=== PATIENT | female | born 1930 | race Caucasian/White ===

== ENCOUNTER → 2018-01-28 | Outpatient (CLI) | payer OTHER ==
[~2018-01-28] MED LIST: ASPI81CH PO; DILT60 PO; ERGO400 PO; FLAX PO; HYDCHL12.5 PO; LISI20 PO; LUMIGAN2.5 ML LEFTEYE; PANT40 PO; PROBIOTIC1 EAC2 PO; PSYL5.85P PO; TIMDOROPSO LEFTEYE; Vitamin D400 UNI2 PO; [UNRECOGNIZED DRUG - OTHER] PO
[2018-01-29 10:56] LABS: Adenovirus F 40/41 Not Detected (NOT DETECT); Astrovirus Not Detected (NOT DETECT); Campylobacter Sp Not Detected (NOT DETECT); Cryptosporidium Not Detected (NOT DETECT); Cyclospora Cayetanensis Not Detected (NOT DETECT); E. Coli O157 Not Detected (NOT DETECT); Entamoeba Histolytica Not Detected (NOT DETECT); Enteroaggregative E. coli-EAEC Not Detected (NOT DETECT); Enteropathogenic E. coli-EPEC Not Detected (NOT DETECT); Enterotoxigenic E. coli-ETEC Not Detected (NOT DETECT); Giardia Lamblia Not Detected (NOT DETECT); Norovirus GI/GII Not Detected (NOT DETECT); Plesiomonas Shigelloides Not Detected (NOT DETECT); Rotavirus A Not Detected (NOT DETECT); Salmonella Sp Not Detected (NOT DETECT); Sapovirus Not Detected (NOT DETECT); Shiga Toxin-prod E. coli-STEC Not Detected (NOT DETECT); Shigella/Enteroin E. coli-EIEC Not Detected (NOT DETECT); Vibrio Cholerae Not Detected (NOT DETECT); Vibrio Sp Not Detected (NOT DETECT); Yersinia Enterocolitica Not Detected (NOT DETECT)
== END | disposition home or self-care (01) ==
LOC: LAB SHORT 19:00 → LAB EV 19:00
PROVIDERS: Physician Assistant
DX: R19.7 Diarrhea, unspecified (principal)
CPT/HCPCS: 87507

== ENCOUNTER → 2018-01-29 | Outpatient (CLI) | payer OTHER ==
[2018-01-29 10:46] LABS: BASOPHILS ABSOLUTE AUTO 0.05 K/mm3 (0.00-0.23); BASOPHILS PERCENT AUTO 1 % (0-2); EOSINOPHILS ABSOLUTE AUTO 0.21 K/mm3 (0.00-0.68); EOSINOPHILS PERCENT AUTO 2 % (0-6); Hematocrit 48.4 % (33.0-51.0); IMMATURE GRAN ABSOLUTE AUTO 0.08 K/mm3 (0.00-0.10); IMMATURE GRAN PERCENT AUTO 1 % (0-1); LYMPHOCYTES PERCENT AUTO 30 % (21-46); MONOCYTES ABSOLUTE AUTO 0.63 K/mm3 (0.16-1.47); MONOCYTES PERCENT AUTO 6 % (4-13); Mean Corpuscular HGB 29.5 pg (26.0-34.0); Mean Corpuscular HGB Conc 33.1 g/dL (31.5-36.5); Mean Corpuscular Volume 89 fL (80-100); Mean Platelet Volume 9.8 fL (9.1-12.4); NEUTROPHILS ABSOLUTE AUTO 6.18 K/mm3 (1.96-9.15); NEUTROPHILS PERCENT AUTO 60 % (41-73); Platelet Count 209 K/mm3 (150-400); RDW Standard Deviation 42.4 fL (35.1-46.3); Red Blood Cell Count 5.43 M/mm3 (3.80-5.20); White Blood Cell Count 10.25 K/mm3 (4.00-11.30)
[2018-01-29 11:07] LABS: Alanine Aminotransfer (ALT/SGP 40 U/L (12-78); Albumin, Blood 3.7 g/dL (3.4-5.0); Albumin/Globulin Ratio 0.9 (0.8-1.8); Alk Phos 113 U/L (40-126); Anion Gap 11 mmol/L (6-16); Aspartate Aminotrans (AST/SGOT 20 U/L (12-37); Bilirubin, Total 0.4 mg/dL (0.1-1.0); Blood Urea Nitrogen 13 mg/dL (8-24); Bun/Creatinine Ratio 14.6 (12.0-20.0); CO2, Blood 25 mmol/L (21-32); Calcium, Blood 9.2 mg/dL (8.5-10.1); Chloride, Blood 99 mmol/L (98-108); Creatinine, Blood 0.89 mg/dL (0.40-1.00); Globulin, Blood 4.3 g/dL (2.2-4.0); Glomerular Filtration Rate >60 (60-); Glucose, Blood 341 mg/dL (70-99); Magnesium, Blood 1.9 mg/dL (1.6-2.4); Potassium, Blood 3.8 mmol/L (3.5-5.5); Sodium, Blood 135 mmol/L (136-145); Thyroid Stimulating Hormone 1.244 uIU/mL (0.360-4.800)
== END | disposition home or self-care (01) ==
LOC: LAB SHORT 10:43 → LAB EV 10:43
PROVIDERS: Physician Assistant
DX: R19.7 Diarrhea, unspecified (principal); R53.83 Other fatigue
CPT/HCPCS: 80053; 83735; 84443; 85025

== ENCOUNTER 2019-11-11 15:38 | Inpatient (IN) | payer OTHER ==
[~2019-11-11] VITALS: Ht 162.6 cm; Wt 89.5 kg
[~2019-11-11 15:38] MED LIST changes: -Vitamin D400 UNI2 PO
[2019-11-11 16:09] LABS: BASOPHILS ABSOLUTE AUTO 0.05 K/mm3 (0.00-0.23); BASOPHILS PERCENT AUTO 0 % (0-2); EOSINOPHILS ABSOLUTE AUTO 0.17 K/mm3 (0.00-0.68); EOSINOPHILS PERCENT AUTO 1 % (0-6); Hematocrit 50.2 % (33.0-51.0); Hemoglobin 15.9 g/dL (11.5-16.0); IMMATURE GRAN ABSOLUTE AUTO 0.13 K/mm3 (0.00-0.10); IMMATURE GRAN PERCENT AUTO 1 % (0-1); LYMPHOCYTES ABSOLUTE AUTO 2.92 K/mm3 (0.84-5.20); LYMPHOCYTES PERCENT AUTO 18 % (21-46); MONOCYTES PERCENT AUTO 5 % (4-13); Mean Corpuscular HGB Conc 31.7 g/dL (31.5-36.5); Mean Corpuscular Volume 92 fL (80-100); Mean Platelet Volume 10.4 fL (9.1-12.4); NEUTROPHILS ABSOLUTE AUTO 11.88 K/mm3 (1.96-9.15); NEUTROPHILS PERCENT AUTO 75 % (41-73); Platelet Count 354 K/mm3 (150-400); RDW Standard Deviation 44.1 fL (35.1-46.3); Red Blood Cell Count 5.48 M/mm3 (3.80-5.20); White Blood Cell Count 15.95 K/mm3 (4.00-11.30)
[2019-11-11 16:33] LABS: Alanine Aminotransfer (ALT/SGP 110 U/L (12-78); Albumin, Blood 3.4 g/dL (3.4-5.0); Albumin/Globulin Ratio 0.8 (0.8-1.8); Alk Phos 216 U/L (50-136); Anion Gap 12 mmol/L (6-16); Aspartate Aminotrans (AST/SGOT 105 U/L (12-37); Bilirubin, Total 0.7 mg/dL (0.1-1.0); Blood Urea Nitrogen 14 mg/dL (8-24); Bun/Creatinine Ratio 15.8 (12.0-20.0); CO2, Blood 23 mmol/L (21-32); Calcium, Blood 9.3 mg/dL (8.5-10.1); Chloride, Blood 103 mmol/L (98-108); Creatinine, Blood 0.89 mg/dL (0.40-1.00); Globulin, Blood 4.5 g/dL (2.2-4.0); Glomerular Filtration Rate >60 (60-); Glucose, Blood 329 mg/dL (70-99); Potassium, Blood 3.3 mmol/L (3.5-5.5); Sodium, Blood 138 mmol/L (136-145); Total Protein, Blood 7.9 g/dL (6.4-8.2); Troponin I 0.057 ng/mL (0.000-0.040)
[2019-11-11 18:11] LABS: D-Dimer, Quantitative 0.64 mg/L FEU (0.00-0.52); Prothrombin Time Results 10.7 Sec (9.7-11.5)
[2019-11-11] MEDS ORDERED: TIMO.5OPSO BOTHEYES (22:12)
[2019-11-11] MEDS ORDERED: LISI20 PO (22:13)
[2019-11-11] MEDS ORDERED: LATA.005SO BOTHEYES (22:18)
[2019-11-11] MEDS ORDERED: METF500 PO ×2 (22:19)
[2019-11-11] MEDS ORDERED: GLIP10 PO (22:20)
[2019-11-11] MEDS ORDERED: AMLO5 PO (22:21)
[2019-11-11] MEDS ORDERED: ATOR20 PO (22:21)
[2019-11-11] MEDS ORDERED: FURO40 PO (22:23)
[2019-11-12 02:14] LABS: BASOPHILS ABSOLUTE AUTO 0.07 K/mm3 (0.00-0.23); BASOPHILS PERCENT AUTO 1 % (0-2); EOSINOPHILS ABSOLUTE AUTO 0.19 K/mm3 (0.00-0.68); EOSINOPHILS PERCENT AUTO 2 % (0-6); Hematocrit 45.7 % (33.0-51.0); Hemoglobin 14.4 g/dL (11.5-16.0); IMMATURE GRAN ABSOLUTE AUTO 0.07 K/mm3 (0.00-0.10); IMMATURE GRAN PERCENT AUTO 1 % (0-1); LYMPHOCYTES ABSOLUTE AUTO 3.13 K/mm3 (0.84-5.20); LYMPHOCYTES PERCENT AUTO 25 % (21-46); MONOCYTES ABSOLUTE AUTO 1.04 K/mm3 (0.16-1.47); MONOCYTES PERCENT AUTO 8 % (4-13); Mean Corpuscular HGB 28.6 pg (26.0-34.0); Mean Corpuscular HGB Conc 31.5 g/dL (31.5-36.5); Mean Corpuscular Volume 91 fL (80-100); Mean Platelet Volume 9.9 fL (9.1-12.4); NEUTROPHILS ABSOLUTE AUTO 8.08 K/mm3 (1.96-9.15); NEUTROPHILS PERCENT AUTO 64 % (41-73); Platelet Count 294 K/mm3 (150-400); RDW Coefficient Variation 13.2 % (11.7-14.2); RDW Standard Deviation 44.2 fL (35.1-46.3); Red Blood Cell Count 5.04 M/mm3 (3.80-5.20); White Blood Cell Count 12.58 K/mm3 (4.00-11.30)
[2019-11-12 02:35] LABS: Albumin/Globulin Ratio 0.7 (0.8-1.8); Bilirubin, Total 0.2 mg/dL (0.1-1.0); Bun/Creatinine Ratio 21.6 (12.0-20.0); Calcium, Blood 8.5 mg/dL (8.5-10.1); Creatinine, Blood 1.02 mg/dL (0.40-1.00); Globulin, Blood 4.1 g/dL (2.2-4.0); Potassium, Blood 3.4 mmol/L (3.5-5.5); Total Protein, Blood 7.1 g/dL (6.4-8.2)
[2019-11-12 02:37] LABS: Troponin I 1.44 ng/mL (0.000-0.040)
--- NOTE | 2019-11-12 06:27 | NUR ---
SHIFT LEANA. ASSUMED CARE ON ADMIT FROM ED AT 2029. STEPPED ONTO FLOOR AND ASSISTED TO BED . UNSTEADY GAIT. VERY WEAK. AMIODARONE CONT AT 1 MG/ MIN/ BP HIGH WHEN FIRST IN ROOM .SR AT 70 AVERAGE. BBB/ OCC PVC. SLEPT IN RECLINER ALL NOC. COMFORTABLE WHEN NOT HAVING TO MOVE ABOUT DUE TO SHARP PAIN LT BACK RIB AREA IF TWISTING WRONG OR GETTING IN AND OUT OF BED OR CHAIR. ALSO NOTICED THIS PAIN , NOT SHARP, ON DEEP INSPIRATION.LUNGS CLEAR T/O . REPORTS THIS PAIN HAS BEEN LIKE THIS FOR ABOUT 4 DAYS AT HOME. LIVES ALONE AND NEED FOR SOCIAL SERVICE, REPORTS HAVING FALLEN AT HOME ABOUT 4 MO AGO. ALL FAMILY OUT OF STATE. SNORTS TO CLEAR THROAT A LOT. NOTED FEW PATCHES OF RED SKIN MID STERNAL AREA. NO OTHER SKIN ISSUES . REDUCED ANIODARONE GTT TO 0.5 MG MIN AT 2300 POST 6 HR AT 1 MG / MIN DOSE.
--- NOTE | 2019-11-12 08:54 | NUR ---
AM NOTE... ASSUMED CARE OF PT APROX 0700, PT IS A&Ox4. PT WAS ADMITTED FOR AFIB RVR IS S/P CARDIOVERSION AND IS CURRENTLY ON AN AMNIO GTT RUNNING PER ORDERS. PT'S VS STABLE AT THIS TIME. L/S CLEAR T/O ON RA. BT PRESENT AND NORMOACTIVE ABD SOFT AND NONTENDER TO PALP. PT DENIES ANY CHEST PAIN/PRESSURE N/V OR SOB AT THIS TIME. PT IS UP IN THE RECLINER CHAIR AND IS SBA TO THE [facility]. THIS RN SPOKE WITH FAMILY AND GAVE THEM AN UPDATE, PER THE FAMILY THEY FEEL SHE IS UNSAFE TO D/C HOME ALONE, THEY ARE CURRENTLY WORKING ON GETTING A FAMILY MEMBER TO [place] TO HELP WITH HER HOME CARE. METAL TRIMMER AMEYA UPDATED. CALL LIGHT IN REACH WILL CONTINUE TO MONITOR.
--- NOTE | 2019-11-12 18:36 | NUR ---
SHIFT SUMMARY... NO ACUTE NEGATIVE CHANGES NOTED THIS SHIFT. PT'S VS WERE STABLE EXCEPT BP, PT BECAME HYPERTENSIVE THIS AFTERNOON. PROVIDER IS AWARE AND NEW PRN MEDICATIONS ORDERED. PT HAS BEEN UP IN THE CHAIR MOST OF THE SHIFT. ECHO WAS DONE TODAY, RESULTS PENDING. PT HAS BEEN SBA TO THE BATHROOM W/FWW AND GAIT BELD. PT WORKED WITH PT/OT TODAY WELL. PT DENIES ANY CHEST PAIN/PRESSURE N/V OR SOB. PT HAS BEEN IN NSR T/O SHIFT. THIS RN SPOKE WITH THE PT'S FAMILY MULTIPLE TIMES T/O SHIFT TO UPDATE THEM. FAMILY LIVES IN [place] AND IS WORKING ON MAKING IT UP HERE TO HELP WITH THE PT'S MEDICATIONS AND COOKING/CLEANING. CALL LIGHT IN REACH WILL CONTINUE TO MONITOR UNTIL REPORT IS GIVEN TO ONCOMING RN.
--- NOTE | 2019-11-12 22:47 | NUR ---
2129 PT ARRIVED TO ROOM 342 FROM [facility] IN STABLE CONDITION. REPORTS PAIN IN L SIDE WITH MOVEMENT OR COUGH. DENIES SOB OR COUGH BUT REPORTS SHE FEELS LIKE SHE HAS PHLEM SHE NEEDS TO COUGH UP. IV IN LAC IS LEAKING, WILL DC AND START NEW IV. LUNGS ARE CLEAR BUT DIMINISHED. ON RA AT 96%. YEASTY AREAS UNDER BREASTS AND IN GROIN AREA, SOME REDNESS IN L GROIN AREA. OTHERWISE AGREE WITH PREVIOUS NURSES ASSESSMENT. PT REQUEST TYLENOL, WILL ADMINISTER AND ASSESS FOR EFFECT. NO OTHER APPARENT SIGNS OF DISTRESS. CALL LIGHT IS IN REACH.
--- NOTE | 2019-11-12 23:40 | NUR ---
PT LYING IN BED, EYES CLOSED, APPEARS TO BE RESTING. BREATHING IS EVEN, UNLABORED. NO APPARENT SIGNS OF DISTRESS. CALL LIGHT IS IN REACH.
--- NOTE | 2019-11-13 01:56 | NUR ---
PT LYING IN BED, EYES CLOSED, APPEARS TO BE RESTING. BREATHING IS EVEN, UNLABORED. NO APPARENT SIGNS OF DISTRESS. CALL LIGHT IS IN REACH.
--- NOTE | 2019-11-13 02:00 | NUR ---
PT IS AAO X 4, SBA TO BATHROOM OR BSC. TELE NSR TO ST IN 110-S. SCD'S ON. PT REPORTS PAIN WITH MOVEMENT OR COUGH, NONE WHEN NOT MOVING. DENIES COUGH BUT REPORTS SHE FEELS LIKE SHE HAS PHLEM SHE NEEDS TO COUGH UP. ON RA AT 96%. YEASTY UNDER BREASTS AND IN GROIN AREA, SOME REDNESS IN GROIN AREA. EDEMA IN LE'S 2-3+.
--- NOTE | 2019-11-13 02:27 | NUR ---
assumed care of PT after report from Yvrose PARRISH. PT sleeping with tele monitor in place. Room air & able to communicate. SCDs in place. Tele report from Maggie Kasper with BBB & PACS. Has AM labs scheduled.
--- NOTE | 2019-11-13 04:51 | NUR ---
Apresoline given 10 mg IV to tx SBP greater than 160. PT omn tele monitor & about 10 mins after antihypertensive given tele tach Maggie called to report 11 beat run of VTAC PT asyptomatic & BP down to 130s systolic on recheck. PT up indep in room to bathroom with steady gait. She CO gen pain with activity 11/19 with unknown cause per PT report. Tylenol with mild helpful effect. PT was converted with amaroderone gtt from AFIB with RVR to SR BBBwith PAC. Lives alone PT DTR in [place] lives in [place]. Lacks socail support lives alone. SW referral for safe DC plan.
[2019-11-13 06:14] LABS: BASOPHILS ABSOLUTE AUTO 0.05 K/mm3 (0.00-0.23); BASOPHILS PERCENT AUTO 1 % (0-2); EOSINOPHILS ABSOLUTE AUTO 0.37 K/mm3 (0.00-0.68); EOSINOPHILS PERCENT AUTO 3 % (0-6); Hematocrit 42.9 % (33.0-51.0); IMMATURE GRAN ABSOLUTE AUTO 0.07 K/mm3 (0.00-0.10); IMMATURE GRAN PERCENT AUTO 1 % (0-1); LYMPHOCYTES ABSOLUTE AUTO 2.68 K/mm3 (0.84-5.20); LYMPHOCYTES PERCENT AUTO 25 % (21-46); MONOCYTES ABSOLUTE AUTO 0.86 K/mm3 (0.16-1.47); MONOCYTES PERCENT AUTO 8 % (4-13); Mean Corpuscular HGB 29.4 pg (26.0-34.0); Mean Corpuscular HGB Conc 32.6 g/dL (31.5-36.5); Mean Corpuscular Volume 90 fL (80-100); Mean Platelet Volume 10.3 fL (9.1-12.4); NEUTROPHILS ABSOLUTE AUTO 6.91 K/mm3 (1.96-9.15); NEUTROPHILS PERCENT AUTO 63 % (41-73); Platelet Count 309 K/mm3 (150-400); RDW Coefficient Variation 13.4 % (11.7-14.2); RDW Standard Deviation 43.8 fL (35.1-46.3); Red Blood Cell Count 4.77 M/mm3 (3.80-5.20); White Blood Cell Count 10.94 K/mm3 (4.00-11.30)
--- NOTE | 2019-11-13 06:36 | NUR ---
PT had Echo with EF 59%. No further episodes of VTack continues with NSR with BBB present. Resting quietly after tylenol for gen joint pain.
[2019-11-13 06:38] LABS: Anion Gap 6 mmol/L (6-16); Blood Urea Nitrogen 19 mg/dL (8-24); Bun/Creatinine Ratio 27.4 (12.0-20.0); CHOL/HDL RATIO 2.7; CO2, Blood 25 mmol/L (21-32); Calcium, Blood 8.8 mg/dL (8.5-10.1); Chloride, Blood 107 mmol/L (98-108); Cholesterol 154 mg/dL (50-200); Creatinine, Blood 0.69 mg/dL (0.40-1.00); Glomerular Filtration Rate >60 (60-); Glucose, Blood 212 mg/dL (70-99); HDL Cholesterol 57 mg/dL (>39); Low Density Lipoprotein Chol 59 mg/dL (0-110); Potassium, Blood 3.3 mmol/L (3.5-5.5); Sodium, Blood 138 mmol/L (136-145); Triglycerides 192 mg/dL (30-160); Very Low Density Lipoprot Chol 38 mg/dL (6-32)
--- NOTE | 2019-11-13 17:41 | NUR ---
PATIENT HAD AN UNEVENTFUL SHIFT. DENIES PAIN AND DISCOMFORT. CALLS STAFF APPROPRIATELY FOR ASSIST NEEDED. PLEASANT AND COOPERATIVE. NO ACUTE CHANGES TO REPORT ON AT THIS TIME.
[2019-11-14 05:49] LABS: Anion Gap 3 mmol/L (6-16); Blood Urea Nitrogen 12 mg/dL (8-24); Bun/Creatinine Ratio 21.6 (12.0-20.0); CO2, Blood 26 mmol/L (21-32); Calcium, Blood 9.2 mg/dL (8.5-10.1); Chloride, Blood 109 mmol/L (98-108); Creatinine, Blood 0.56 mg/dL (0.40-1.00); Glomerular Filtration Rate >60 (60-); Glucose, Blood 189 mg/dL (70-99); Potassium, Blood 3.9 mmol/L (3.5-5.5); Sodium, Blood 138 mmol/L (136-145)
--- NOTE | 2019-11-14 07:46 | NUR ---
Rn summary: Patient is alert and oriented x3. Pt main complaint is the pain/muscle spasm on her left shoulder blade. Area is tender to the touch. Lungs are clear, dry cough. Pt medicated with tylenol with good relief. Pt refuses recliner and heating pad at this time. Pt is up independantly to BR. Daughter Isis called for update. She expresses concern about her MOM being discharged. She feels she is not safe at home, that she needs help with her meds. States other daughteris in [facility] and two sons are in [place]. Pt has rested well. Call light in reach.
--- NOTE | 2019-11-14 15:19 | NUR ---
Stated she had diarrhea, asked dr for imodeum 2mg q4 prn, will provide and monitor, awaiting pharmacy ck
--- NOTE | 2019-11-14 19:04 | NUR ---
ASSUMED CARE RECEIVED REPORT FROM SHIVANI ELIZABETH. ASSUMED CARE OF PT. RESTING COMFORTABLY, RESPS EVEN AND UNLABORED, NO S/S ACUTE DISTRESS NOTED AT THIS TIME. DENIES NEEDS AT THIS TIME. CALL LIGHT, POSSESSIONS IN REACH. WILL CONTINUE TO MONITOR.
--- NOTE | 2019-11-14 19:15 | NUR ---
A+O, FAMILY REQUESTED SHE STAY UNTIL THEY WERE READY FOR HER TO COME HOME, THEY HAD JUST ARRIVED FROM [place] AND NEEDED TIME TO CLEAN AND PUT HOUSE IN ORDER FOR HER TO RETURN, BOWEL CARE EFFECTIVE, CALL LIGHT IN REACH, SALINE LOCKED, RM AIR, BS REPORT SHARED WITH PT AND NURSE
[2019-11-15 05:55] LABS: Anion Gap 6 mmol/L (6-16); Blood Urea Nitrogen 17 mg/dL (8-24); CO2, Blood 26 mmol/L (21-32); Calcium, Blood 9.5 mg/dL (8.5-10.1); Chloride, Blood 105 mmol/L (98-108); Creatinine, Blood 0.65 mg/dL (0.40-1.00); Glomerular Filtration Rate >60 (60-); Glucose, Blood 202 mg/dL (70-99); Sodium, Blood 137 mmol/L (136-145)
--- NOTE | 2019-11-15 06:15 | NUR ---
SHIFT SUMMARY PT HAS HAD AN UNEVENTFUL NIGHT. RESTING COMFORTABLY AT THIS TIME, NO S/S ACUTE DISTRESS NOTED. WAS MONITORED EVERY 1-2 HOURS WITH NEEDS MET, DENIES NEEDS AT THIS TIME. VS STABLE. CALL LIGHT, POSSESSIONS IN REACH, HOPEFUL TO D/C HOME TODAY WITH SON. WILL CONTINUE TO MONITOR UNTIL DAY RN ASSUMES CARE.
[2019-11-15] MEDS ORDERED: ACET325 PO (12:54)
[2019-11-15] MEDS ORDERED: AMIODARONE HCL200 M1 PO (12:54)
[2019-11-15] MEDS ORDERED: Voltaren100 GM TOP (12:55)
[2019-11-15] MEDS ORDERED: XARELTO15 MG PO (12:57)
--- NOTE | 2019-11-15 15:52 | NUR ---
PT DISCHARGED TODAY WITH SON TO TRANSPORT. NO DITRESS NOTED. PT INDEPENEDENT IN ROOM. AOX3 AND COOPERATIVE OF CARE. ALL PAPERWORK AND EDUCATIONAL MATERIAL REVIEWED AT THE CAR N ENTRANCE. ESCORTED OUT BY THIS ENVIRONMENTAL PROTECTION ECONOMIST IN WHEELCHAIR. ALL PERSONAL BELONGINGS COLLECTED AND WITH PT.
== END 2019-11-15 13:25 | disposition home or self-care (01) | DRG 310 ==
LOC: ER 15:38 → PCU 19:29 → MEDS 11-12 21:30 → ENPENDDIS 11-15 10:00 → MEDS 11-15 13:25
PROVIDERS: Emergency Medicine; ADMIT Internal Medicine
DX: I48.0 Paroxysmal atrial fibrillation (principal); Z79.82 Long term (current) use of aspirin; H40.9 Unspecified glaucoma; I10 Essential (primary) hypertension; E87.6 Hypokalemia; Z86.73 Personal history of transient ischemic attack (TIA), and cerebral infarction without residual deficits; E11.9 Type 2 diabetes mellitus without complications; T46.2X5A Adverse effect of other antidysrhythmic drugs, initial encounter; Y92.9 Unspecified place or not applicable
CPT/HCPCS: 36415; 71045; 80048; 80053; 80061; 82947; 83036; 83735; 83880; 84443; 84484; 85025; 85379; 85610; 85730; 92960; 93005; 93010; 93306; 96365-59; 96366-59; 97161; 99285-25; A9270; A9270-GY; J0282; J0360; J1650; J7030; J7060